=== PATIENT | female | born 2005 | race Caucasian/White ===

== ENCOUNTER 2024-03-28 14:23 | Outpatient (CLI) | payer OTHER, SELFPAY ==
[2024-03-28 15:41] LABS: Alanine Aminotransferase 19 U/L (6-35); Albumin Level 4.5 g/dL (3.7-5.6); Alkaline Phosphatase 72 U/L (45-116); Anion Gap 9 mmol/L (4-12); Aspartate Amino Transferase 26 U/L (14-36); Bilirubin,Total 0.7 mg/dL (0.2-1.3); Blood Urea Nitrogen 15 mg/dL (8-21); Calcium 8.9 mg/dL (8.9-10.7); Carbon Dioxide 30 mmol/L (22-30); Chloride 101 mmol/L (98-107); Estimated Glomerular Filt Rate > 60; Glucose 93 mg/dL (65-110); Potassium 4.7 mmol/L (3.4-5.0); Sodium 140 mmol/L (134-143)
[2024-04-01 13:13] LABS: NIL 0.01 IU/mL; Quantiferon TB Plus, 1T NEGATIVE (NEGATIVE)
== END 2024-03-28 14:24 | disposition home or self-care (01) ==
LOC: ANHLAB 14:25
PROVIDERS: PCP Family Medicine; Visit Provider Physician Assistant Medical
DX: Z00.00 Encounter for general adult medical examination without abnormal findings (principal); E04.1 Nontoxic single thyroid nodule; E78.2 Mixed hyperlipidemia; A15 Respiratory tuberculosis; F41.9 Anxiety disorder, unspecified
CPT/HCPCS: 36415; 80053; 84443; 86480

== ENCOUNTER 2025-03-29 12:38 | Outpatient (CLI) | payer OTHER, SELFPAY ==
--- OUTSIDE RECORDS SUMMARY | 2025-03-29 12:40 | XMS_ITS | Encounter Summary ---
Author Organization [facility] Address [address] [place] [address] Care Team Providers Care Contract Forester Name Role Phone Unavailable Primary Care Provider Unavailabl e Encounter Details Date Type Department Care Team (Late st Contact Info) Description 02/04/2005 Inpatient Historical [facility] LeonoraChris nicole MD [address] [facility] [place] [address] Conversion, History URIN TRACT INFECTION NOS (Primary Dx) Social History Tobacco Use Types Packs/Day Years Used Date Smoking Tobacco: Never Assessed Comments Unknown Sex and Gender Information Value Date Recorded Sex Assigned at Not on file 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
--- OUTSIDE RECORDS SUMMARY | 2025-03-29 12:40 | XMS_ITS | Encounter Summary ---
Author Organization [facility] Address 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
--- OUTSIDE RECORDS SUMMARY | 2025-03-29 12:40 | XMS_ITS | Encounter Summary ---
Author Organization [facility] Address 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
--- OUTSIDE RECORDS SUMMARY | 2025-03-29 12:40 | XMS_ITS | Encounter Summary ---
[facility] Organization [facility] Address [address] [place] [address] Care Team Providers Care Donor Relations Coordinator Name Role Phone Unavailable Primary Care Provider Unavailabl e Encounter Details Date Type Department Care Team (Latest Contact Info) Description 2004 Inpatient Historical HIS PATIENT IN A BED Zhao Camp MD [address] [place] [address] Eduardo Sifuentes MD [address] [place] [place] [address] ADI BORN IN HOSP-W C/DELIVERY (Primary Dx) Social History Tobacco Use Types Packs/Day Years Used Date Smoking Tobacco: Never Assessed Comments Unknown Sex and Gender Information Value Date Recorded Sex Assigned at Not on file Legal Sex Female 3:26 AM RN CARDIAC CATH Gender Identity Not on file Sexual Orientation Not on file documented as of this encounter Plan of Treatment Not on file documented as of this encounter Procedures Procedure Name Priority Date/Time Associated Diagnosis Comments HEMOGLOBIN AND HEMATOCRIT Routine 2004 4:20 AM RN CARDIAC CATH RETICULOCYTES Routine 2004 4:20 AM RN CARDIAC CATH HEMOGLOBIN AND HEMATOCRIT Routine 2004 10:55 AM RN CARDIAC CATH HEMOGLOBIN AND HEMATOCRIT Routine 2004 6:31 AM RN CARDIAC CATH BASIC METABOLIC PANEL Routine 2004 4:29 AM RN CARDIAC CATH TPN PANEL Routine 2004 4: 47 AM RN CARDIAC CATH BASIC METABOLIC PANEL Routine 2004 4:19 AM RN CARDIAC CATH BILIRUBIN TOTAL Routine 2004 4:47 AM RN CARDIAC CATH BASIC METABOLIC PANEL Routine 2004 4:47 AM RN CARDIAC CATH BASIC METABOLIC PANEL Routine 2004 9:08 AM RN CARDIAC CATH HEMOGLOBIN AND HEMATOCRIT Routine 2004 4:26 AM RN CARDIAC CATH TRIGLYCERIDE Routine 2004 4:26 AM RN CARDIAC CATH BASIC METABOLIC PANEL Routine 2004 4:26 AM RN CARDIAC CATH BILIRUBIN TOTAL Routine 2004 4:37 AM RN CARDIAC CATH BILIRUBIN TOTAL Routine 2004 5:25 AM RN CARDIAC CATH TRIGLYCERIDE Routine 2004 5:00 AM RN CARDIAC CATH BILIRUBIN TOTAL Routine 2004 5:00 AM RN CARDIAC CATH BASIC METABOLIC PANEL Routine 2004 5:00 AM RN CARDIAC CATH TRIGLYCERIDE Routine 2004 5:15 AM RN CARDIAC CATH BILIRUBIN TOTAL Routine 2004 5:15 AM RN CARDIAC CATH BASIC METABOLIC PANEL Routine 2004 5:15 AM RN CARDIAC CATH CBC WITH DIFFERENTIAL Routine 2004 4:56 AM RN CARDIAC CATH CBC WITH DIFFERENTIAL Routine 2004 4:56 AM RN CARDIAC CATH CBC WITH DIFFERENTIAL Routine 2004 4:56 AM RN CARDIAC CATH BILIRUBIN TOTAL Routine 2004 4:56 AM RN CARDIAC CATH BASIC METABOLIC PANEL Routine 2004 4:56 AM RN CARDIAC CATH TRIGLYCERIDE Routine 2004 4:45 AM RN CARDIAC CATH BASIC METABOLIC PANEL Routine 2004 4:45 AM RN CARDIAC CATH GENTAMICIN LEVEL RANDOM Routine 2004 7:06 PM RN CARDIAC CATH CBC WITH DIFFERENTIAL Routine 2004 6:09 AM RN CARDIAC CATH CBC WITH DIFFERENTIAL Routine 2004 6:09 AM RN CARDIAC CATH CBC WITH DIFFERENTIAL Routine 2004 6:09 AM RN CARDIAC CATH BILIRUBIN TOTAL Routine 2004 4:49 AM RN CARDIAC CATH BASIC METABOLIC PANEL Routine 2004 4:34 AM RN CARDIAC CATH BILIRUBIN TOTAL Routine 2004 4:45 AM RN CARDIAC CATH BASIC METABOLIC PANEL Routine 2004 4:45 AM RN CARDIAC CATH CBC WITH DIFFERENTIAL Routine 2004 5:39 AM RN CARDIAC CATH CBC WITH DIFFERENTIAL Routine 2004 5:39 AM RN CARDIAC CATH CBC WITH DIFFERENTIAL Routine 2004 5:39 AM RN CARDIAC CATH documented in this encounter Results * (ABNORMAL) RETICULOCYTES (2004 4:20 AM RN CARDIAC CATH) RETICULOCYTES 1.8 0.5 - 2.0 % INTERFACE SYSTEM IMMATURE RETIC FRACTION 21(H) 0 - 16 % INTERFACE SYSTEM 2004 4:20 AM RN CARDIAC CATH Suhail Hernandez MD HEMATOLOGY ORDERABLES F inal Result Performing Organization Address City/[facility] de Phone Number INTERFACE SYSTEM Refer to clinic/hospital department * HEMOGLOBIN AND HEMATOCRIT (2004 4:20 AM RN CARDIAC CATH) HEMOGLOBIN 13.5 10.0 - 18.0 g/dL INTERFACE SYSTEM HEMATOCRIT 39.3 31.0 - 56.0 % INTERFACE SYSTEM 2004 4:20 AM RN CARDIAC CATH Suhail Hernandez MD HEMATOLOGY ORDERABLES F inal Result Performing Organization Address [facility] de Phone Number INTERFACE SYSTEM Refer to clinic/hospital department * HEMOGLOBIN AND HEMATOCRIT (2004 10:55 AM RN CARDIAC CATH) HEMOGLOBIN 12.7 10.0 - 18.0 g/dL INTERFACE SYSTEM HEMATOCRIT 36.1 31.0 - 56.0 % INTERFACE SYSTEM 2004 10:5 5 AM RN CARDIAC CATH Carmelo Moctezuma MD HEMATOLOGY ORDERABLES Final Res ult Performing Organization Address [facility] Phone Number INTERFACE SYSTEM Refer to clinic/hospital department * (ABNORMAL) HEMOGLOBIN AND HEMATOCRIT (2004 6:31 AM RN CARDIAC CATH) HEMOGLOBIN 7.5(AA) 10.0 - 18.0 g/dL INTERFACE SYSTEM Comment: Verified by repeat analysis. Results called to yoel at 2004 6:59 AM and read back verified. HEMATOCRIT 22.2(AA) 31.0 - 56.0 % INTERFACE SYSTEM Comment: Verified by repeat analysis. Results called to yoel at 2004 6:59 AM and read back verified. 2004 6:31 AM RN CARDIAC CATH Sean Portillo MD HEMATOLOGY ORDERABLES Final Result Performing Organization Address [facility] de Phone Number INTERFACE SYSTEM Refer to clinic/hospital department * (ABNORMAL) BASIC METABOLIC PANEL (2004 4:29 AM RN CARDIAC CATH) GLUCOSE 87 60 - 110 mg/dL INTERFACE SYSTEM BUN 9 6 - 20 mg/dL INTERFACE SYSTEM SODIUM 140 135 - 145 mmol/L INTERFACE SYSTEM POTASSIUM 4.1 3.4 - 5.6 mmol/L INTERFACE SYSTEM CHLORIDE 109(H) 96 - 108 mmol/L INTERFACE SYSTEM CO2 27 22 - 30 mmol/L INTERFACE SYSTEM 2004 4:29 AM RN CARDIAC CATH Suhail Hernandez MD CHEMISTRY ORDERABLES Fi nal Result Performing Organization Address [facility] Phone Number INTERFACE SYSTEM Refer to clinic/hospital department * (ABNORMAL) TPN PANEL (2004 4:47 AM RN CARDIAC CATH) BILIRUBIN DIRECT <0.1 0.0 - 0.6 mg/dL INTERFACE SYSTEM CALCIUM 10.0 9.0 - 11.0 mg/dL INTERFACE SYSTEM PHOSPHORUS 7.1(H) 4.5 - 6.7 mg/dL INTERFACE SYSTEM ALKALINE PHOSPHATASE 235 40 - 449 U/L INTERFACE SYSTEM TOTAL PROTEIN 4.5(L) 5.0 - 7.6 g/dL INTERFACE SYSTEM ALT 10 0 - 31 U/L INTERFACE SYSTEM GGT 54 15 - 132 U/L INTERFACE SYSTEM MAGNESIUM 1.9 1.5 - 2.5 mg/dL INTERFACE SYSTEM 2004 4:47 AM RN CARDIAC CATH Magdiel Reilly MD CHEMISTRY ORDERABLES Final Resu lt Performing Organization Address [facility]/ZIP Co de Phone Number INTERFACE SYSTEM Refer to clinic/hospital department * (ABNORMAL) BASIC METABOLIC PANEL (2004 4:19 AM RN CARDIAC CATH) GLUCOSE 89 60 - 110 mg/dL INTERFACE SYSTEM BUN 14 6 - 20 mg/dL INTERFACE SYSTEM SODIUM 134(L) 135 - 145 mmol/L INTERFACE SYSTEM POTASSIUM 4.8 3.5 - 5.7 mmol/L INTERFACE SYSTEM CHLORIDE 103 96 - 108 mmol/L INTERFACE SYSTEM CO2 24 22 - 30 mmol/L INTERFACE SYSTEM 2004 4:19 AM RN CARDIAC CATH Carmelo Moctezuma MD CHEMISTRY ORDERABLES Final Resu Performing Organization Address [facility] Phone Number INTERFACE SYSTEM Refer to clinic/hospital department * (ABNORMAL) BASIC METABOLIC PANEL (2004 4:47 AM RN CARDIAC CATH) GLUCOSE 85 60 - 110 mg/dL INTERFACE SYSTEM BUN 18 6 - 20 mg/dL INTERFACE SYSTEM SODIUM 123(L) 135 - 145 mmol/L INTERFACE SYSTEM POTASSIUM 5.1 3.5 - 5.7 mmol/L INTERFACE SYSTEM Comment:No visible hemolysis . CHLORIDE 92(L) 96 - 108 mmol/L INTERFACE SYSTEM CO2 24 22 - 30 mmol/L INTERFACE SYSTEM 2004 4:47 AM RN CARDIAC CATH Carmelo Moctezuma MD CHEMISTRY ORDERABLES Final Resu Performing Organization Address [facility] Phone Number INTERFACE SYSTEM Refer to clinic/hospital department * (ABNORMAL) BILIRUBIN TOTAL (2004 4:47 AM RN CARDIAC CATH) BILIRUBIN TOTAL 4.7(H) 0.2 - 1.0 mg/dL INTERFACE SYSTEM 2004 4:47 AM RN CARDIAC CATH Result [facility] Carmelo Moctezuma MD CHEMISTRY ORDERABLES Final Resu Performing Organization Address [facility] Phone [facility] INTERFACE SYSTEM Refer to clinic/hospital department * (ABNORMAL) BASIC METABOLIC PANEL (2004 9:08 AM RN CARDIAC CATH) GLUCOSE 91 60 - 110 mg/dL INTERFACE SYSTEM BUN 19 6 - 20 mg/dL INTERFACE SYSTEM SODIUM 121(L) 135 - 145 mmol/L INTERFACE SYSTEM POTASSIUM 5.0 3.5 - 5.7 mmol/L INTERFACE SYSTEM Comment:No visible hemolysis . CHLORIDE 89(L) 96 - 108 mmol/L INTERFACE SYSTEM CO2 26 22 - 30 mmol/L INTERFACE SYSTEM 2004 9:08 AM RN CARDIAC CATH Carmelo Moctezuma MD CHEMISTRY ORDERABLES Final Resu Performing Organization Address [facility] Phone Number INTERFACE SYSTEM Refer to clinic/hospital department * HEMOGLOBIN AND HEMATOCRIT (2004 4:26 AM RN CARDIAC CATH) HEMOGLOBIN 11.0 10.0 - 18.0 g/dL INTERFACE SYSTEM HEMATOCRIT 31.8 31.0 - 56.0 % INTERFACE SYSTEM 2004 4:26 AM RN CARDIAC CATH Zhao Camp MD HEMATOLOGY ORDERABLES Final Re sult Performing Organization Address [facility] Phone Number INTERFACE SYSTEM Refer to clinic/hospital department * TRIGLYCERIDE (2004 4:26 AM RN CARDIAC CATH) TRIGLYCERIDE 39 33 - 115 mg/dL INTERFACE SYSTEM Comment: Triglyceride ATP III Classification: Normal <150 mg/dL Borderline High 150 - 199 mg/dL High 200 - 499 mg/dL Very High >= 500 mg/dL 2004 4:26 AM RN CARDIAC CATH Suhail Hernandez MD CHEMISTRY ORDERABLES Fi nal Result Performing Organization Address [facility] Phone Number INTERFACE SYSTEM Refer to clinic/hospital department * (ABNORMAL) BASIC METABOLIC PANEL (2004 4:26 AM RN CARDIAC CATH) GLUCOSE 94 60 - 110 mg/dL INTERFACE SYSTEM BUN 22(H) 6 - 20 mg/dL INTERFACE SYSTEM POTASSIUM 5.7 3.5 - 5.7 mmol/L INTERFACE SYSTEM Comment:No visible hemolysis . CHLORIDE 86(L) 96 - 108 mmol/L INTERFACE SYSTEM CO2 20(L) 22 - 30 mmol/L INTERFACE SYSTEM SODIUM 122(L) 135 - 145 mmol/L INTERFACE SYSTEM Comment:Results confirmed by 2nd methodology. 2004 4:26 AM RN CARDIAC CATH Suhail Hernandez MD CHEMISTRY ORDERABLES Fi nal Result Performing Organization Address [facility] Phone Number INTERFACE SYSTEM Refer to clinic/hospital department * (ABNORMAL) BILIRUBIN TOTAL (2004 4:37 AM RN CARDIAC CATH) BILIRUBIN TOTAL 5.1(H) 0.2 - 1.0 mg/dL INTERFACE SYSTEM 2004 4:37 AM RN CARDIAC CATH Magdiel Reilly MD CHEMISTRY ORDERABLES Final Resu lt Performing Organization Address [facility] Phone Number INTERFACE SYSTEM Refer to clinic/hospital department * (ABNORMAL) BILIRUBIN TOTAL (2004 5:25 AM RN CARDIAC CATH) BILIRUBIN TOTAL 3.5(H) 0.2 - 1.0 mg/dL INTERFACE SYSTEM 2004 5:25 AM RN CARDIAC CATH Natasha Allison CHEMISTRY ORDERABLES Final Resul t Performing Organization Address [facility] Phone Number INTERFACE SYSTEM Refer to clinic/hospital department * TRIGLYCERIDE (2004 5:00 AM RN CARDIAC CATH) TRIGLYCERIDE 61 33 - 115 mg/dL INTERFACE SYSTEM Comment: Triglyceride ATP III Classification: Normal <150 mg/dL Borderline High 150 - 199 mg/dL High 200 - 499 mg/dL Very High >= 500 mg/dL 2004 5:00 AM RN CARDIAC CATH Result [facility] Magdiel Reilly MD CHEMISTRY ORDERABLES Final Resu lt Performing Organization Address [facility] Phone Number INTERFACE SYSTEM Refer to clinic/hospital department * (ABNORMAL) BILIRUBIN TOTAL (2004 5:00 AM RN CARDIAC CATH) BILIRUBIN TOTAL 5.1(H) 0.2 - 1.0 mg/dL INTERFACE SYSTEM 2004 5:00 AM RN CARDIAC CATH Magdiel Reilly MD CHEMISTRY ORDERABLES Final Resu lt Performing Organization Address [facility] Phone Number INTERFACE SYSTEM Refer to clinic/hospital department * (ABNORMAL) BASIC METABOLIC PANEL (2004 5:00 AM RN CARDIAC CATH) GLUCOSE 87 60 - 110 mg/dL INTERFACE SYSTEM BUN 24(H) 6 - 20 mg/dL INTERFACE SYSTEM SODIUM 140 135 - 145 mmol/L INTERFACE SYSTEM POTASSIUM 6.7(H) 3.5 - 5.7 mmol/L INTERFACE SYSTEM Comment:Slightly hemolyzed. CHLORIDE 115(H) 96 - 108 mmol/L INTERFACE SYSTEM CO2 15(L) 22 - 30 mmol/L INTERFACE SYSTEM 2004 5:00 AM RN CARDIAC CATH Magdiel Reilly MD CHEMISTRY ORDERABLES Final Resu lt Performing Organization Address [facility] Phone Number INTERFACE SYSTEM Refer to clinic/hospital department * (ABNORMAL) BASIC METABOLIC PANEL (2004 5:15 AM RN CARDIAC CATH) GLUCOSE 86 60 - 110 mg/dL INTERFACE SYSTEM BUN 25(H) 6 - 20 mg/dL INTERFACE SYSTEM SODIUM 140 135 - 145 mmol/L INTERFACE SYSTEM POTASSIUM 6.0(H) 3.5 - 5.7 mmol/L INTERFACE SYSTEM Comment:Slightly hemolyzed. CHLORIDE 115(H) 96 - 108 mmol/L INTERFACE SYSTEM CO2 15(L) 22 - 30 mmol/L INTERFACE SYSTEM 2004 5:15 AM RN CARDIAC CATH Eduardo Sifuentes MD CHEMISTRY ORDERABLES Final Re sult Performing Organization Address [facility] Phone Number INTERFACE SYSTEM Refer to clinic/hospital department * TRIGLYCERIDE (2004 5:15 AM RN CARDIAC CATH) TRIGLYCERIDE 61 33 - 115 mg/dL INTERFACE SYSTEM Comment: Triglyceride ATP III Classification: Normal <150 mg/dL Borderline High 150 - 199 mg/dL High 200 - 499 mg/dL Very High >= 500 mg/dL 2004 5:15 AM RN CARDIAC CATH Eduardo Sifuenets MD CHEMISTRY ORDERABLES Final Re sult Performing Organization Address [facility] de Phone Number INTERFACE SYSTEM Refer to clinic/hospital department * (ABNORMAL) BILIRUBIN TOTAL (2004 5:15 AM RN CARDIAC CATH) BILIRUBIN TOTAL 6.4(H) 0.2 - 1.0 mg/dL INTERFACE SYSTEM 2004 5:15 AM RN CARDIAC CATH Eduardo Sifuentes MD CHEMISTRY ORDERABLES Final Re sult Performing Organization Address City/[facility] de Phone Number INTERFACE SYSTEM Refer to clinic/hospital department * (ABNORMAL) CBC WITH DIFFERENTIAL (2004 4:56 AM RN CARDIAC CATH) NEUTROPHIL ABSOLUTE 5.42 K/uL INTERFACE SYSTEM LYMPHOCYTE ABSOLUTE 3.65 K/uL INTERFACE SYSTEM MONOCYTE ABSOLUTE 2.02 K/uL IN TERFACE SYSTEM EOSINOPHIL ABSOLUTE 1.39 K/uL INTERFACE SYSTEM BASOPHILS ABSOLUTE 0.00 K/uL INTERFACE SYSTEM NEUTROPHILS, SEG 42 16 - 60 % INT ERFACE SYSTEM BANDS 1 0 - 4 % INTERFACE SYSTEM LYMPHOCYTES 29 20 - 70 % INTERFAC E SYSTEM MONOCYTES 16(H) 0 - 7 % INTERFACE SYSTEM EOSINOPHILS 11(H) 0 - 8 % INTERFAC E SYSTEM BASOPHILS 0 0 - 1 % INTERFACE SYSTEM METAMYELOCYTE 1(H) <=0 % INTERF JAZMINE SYSTEM PLATELET EST. Normal Normal INTERF JAZMINE SYSTEM ANISOCYTOSIS Slight INTERFA CE SYSTEM POIKILOCYTES Slight INTERFA CE SYSTEM MACROCYTES Slight INTERFACE SYSTEM POLYCHROMASIA Slight INTERF JAZMINE SYSTEM RADHA CELLS Slight INTERFACE SYSTEM CLUMPED PLATELETS Present IN TERFACE SYSTEM GIANT PLATELETS Present INTE RFACE SYSTEM REVIEWED ON SMEAR WBC & Plt Reviewed INTERFACE SYSTEM 2004 4:56 AM RN CARDIAC CATH Eduardo Sifuentes MD HEMATOLOGY ORDERABLES Final R esult Performing Organization Address [facility] de Phone Number INTERFACE SYSTEM Refer to clinic/hospital department * (ABNORMAL) CBC WITH DIFFERENTIAL (2004 4:56 AM RN CARDIAC CATH) NRBC 1(H) <=0 /100 WBC INTERFACE SYSTEM 2004 4:56 AM RN CARDIAC CATH Eduardo Sifuentes MD HEMATOLOGY ORDERABLES Final R esult Performing Organization Address City/[facility]/ZIP Co de Phone Number INTERFACE SYSTEM Refer to clinic/hospital department * (ABNORMAL) CBC WITH DIFFERENTIAL (2004 4:56 AM RN CARDIAC CATH) WBC 12.6 5.0 - 30.0 K/uL INTERFACE SYSTEM RBC 3.86(L) 3.90 - 6.00 M/uL INTERFACE SYSTEM HEMOGLOBIN 13.4(L) 14.5 - 22.5 g/dL INTERFACE SYSTEM HEMATOCRIT 39.3(L) 45.0 - 66.0 % INTERFACE SYSTEM MCV 101.8 88.0 - 123.0 fL INTERFACE SYSTEM MCH 34.7 34.0 - 40.0 pg INTERFACE SYSTEM MCHC 34.1 29.0 - 35.0 % INTERFACE SYSTEM RDW 15.5(H) 11.5 - 14.5 % INTERFACE SYSTEM RDW-STDEV 57.7(H) 37.1 - 48.7 fL INTERFACE SYSTEM PLATELETS 173 140 - 350 K/uL INTERFACE SYSTEM Comment:WBC and Platelets ve rified by smear review. MPV 12.1 9.3 - 12.4 fL INTERFACE SYSTEM 2004 4:56 AM RN CARDIAC CATH Eduardo Sifuentes MD HEMATOLOGY ORDERABLES Final R esult Performing Organization Address [facility] Number INTERFACE SYSTEM Refer to clinic/hospital department * (ABNORMAL) BASIC METABOLIC PANEL (2004 4:56 AM RN CARDIAC CATH) GLUCOSE 91 60 - 110 mg/dL INTERFACE SYSTEM BUN 25(H) 6 - 20 mg/dL INTERFACE SYSTEM SODIUM 142 135 - 145 mmol/L INTERFACE SYSTEM POTASSIUM 4.7 3.5 - 5.7 mmol/L INTERFACE SYSTEM CHLORIDE 112(H) 96 - 108 mmol/L INTERFACE SYSTEM CO2 20(L) 22 - 30 mmol/L INTERFACE SYSTEM 2004 4:56 AM RN CARDIAC CATH Eduardo Sifuentes MD CHEMISTRY ORDERABLES Final Re sult Performing Organization Address [facility] Phone Number INTERFACE SYSTEM Refer to clinic/hospital department * BILIRUBIN TOTAL (2004 4:56 AM RN CARDIAC CATH) BILIRUBIN TOTAL 8.5 1.5 - 12.0 mg/dL INTERFACE SYSTEM 2004 4:56 AM RN CARDIAC CATH us Eduardo Sifuentes MD CHEMISTRY ORDERABLES Final Re sult Performing Organization Address [facility] Phone Number INTERFACE SYSTEM Refer to clinic/hospital department * TRIGLYCERIDE (2004 4:45 AM RN CARDIAC CATH) Pathologist [facility] TRIGLYCERIDE 67 33 - 115 mg/dL INTERFACE SYSTEM Comment: Triglyceride ATP III Classification: Normal <150 mg/dL Borderline High 150 - 199 mg/dL High 200 - 499 mg/dL Very High >= 500 mg/dL 2004 4:45 AM RN CARDIAC CATH Eduardo Sifuentes MD CHEMISTRY ORDERABLES Final Re sult Performing Organization Address [facility] INTERFACE SYSTEM Refer to clinic/hospital department * (ABNORMAL) BASIC METABOLIC PANEL (2004 4:45 AM RN CARDIAC CATH) Pathologist [facility] GLUCOSE 80 40 - 80 mg/dL INTERFACE SYSTEM BUN 24(H) 6 - 20 mg/dL INTERFACE SYSTEM SODIUM 147(H) 135 - 145 mmol/L INTERFACE SYSTEM POTASSIUM 5.0 3.5 - 5.7 mmol/L INTERFACE SYSTEM CHLORIDE 116(H) 96 - 108 mmol/L INTERFACE SYSTEM CO2 20(L) 22 - 30 mmol/L INTERFACE SYSTEM 2004 4:45 AM RN CARDIAC CATH us Eduardo Sifuentes MD CHEMISTRY ORDERABLES Final Re sult Performing Organization Address [facility] Phone Number INTERFACE SYSTEM Refer to clinic/hospital department * GENTAMICIN LEVEL RANDOM (2004 7:06 PM RN CARDIAC CATH) Pathologist [facility] GENTAMICIN, RANDOM 5.0 ug/mL INTERFACE SYSTEM Comment: Gentamicin Trough Therapeutic Range = 0.0 - 2.0 ug/mL Gentamicin Trough Toxic Level = > 2.0 ug/mL Gentamicin Peak Therapeutic Level = 6.0 - 10.0 ug/mL Gentamicin Peak Toxic Level = > 12.0 ug/mL 2004 7:06 PM RN CARDIAC CATH Zhao Camp MD CHEMISTRY ORDERABLES Final Res ult Performing Organization Address [facility] Phone Number INTERFACE SYSTEM Refer to clinic/hospital department * (ABNORMAL) CBC WITH DIFFERENTIAL (2004 6:09 AM RN CARDIAC CATH) NEUTROPHIL ABSOLUTE 9.60 K/uL INTERFACE SYSTEM LYMPHOCYTE ABSOLUTE 3.30 K/uL INTERFACE SYSTEM MONOCYTE ABSOLUTE 1.80 K/uL IN TERFACE SYSTEM EOSINOPHIL ABSOLUTE 0.30 K/uL INTERFACE SYSTEM BASOPHILS ABSOLUTE 0.00 K/uL INTERFACE SYSTEM NEUTROPHILS, SEG 61(H) 16 - 60 % INT ERFACE SYSTEM BANDS 3 0 - 4 % INTERFACE SYSTEM LYMPHOCYTES 22 20 - 70 % INTERFAC E SYSTEM MONOCYTES 12(H) 0 - 7 % INTERFACE SYSTEM EOSINOPHILS 2 0 - 8 % INTERFAC E SYSTEM BASOPHILS 0 0 - 1 % INTERFACE SYSTEM PLATELET EST. Slt. Decreased(A) Normal INTERFACE SYSTEM ANISOCYTOSIS Slight INTERFA CE SYSTEM POIKILOCYTES Slight INTERFA CE SYSTEM MACROCYTES Slight INTERFACE SYSTEM POLYCHROMASIA Slight INTERF JAZMINE SYSTEM PAPPENHEIMER BODIES Present INTERFACE SYSTEM GIANT PLATELETS Present INTE RFACE SYSTEM REVIEWED ON SMEAR WBC & Plt Reviewed INTERFACE SYSTEM 2004 6:09 AM RN CARDIAC CATH Eduardo Sifuentes MD HEMATOLOGY ORDERABLES Final R esult Performing Organization Address [facility] Phone Number INTERFACE SYSTEM Refer to clinic/hospital department * (ABNORMAL) CBC WITH DIFFERENTIAL (2004 6:09 AM RN CARDIAC CATH) NRBC 3(H) <=0 /100 WBC INTERFACE SYSTEM 2004 6:09 AM RN CARDIAC CATH Eduardo Sifuentes MD HEMATOLOGY ORDERABLES Final R esult Performing Organization Address [facility] Phone Number INTERFACE SYSTEM Refer to clinic/hospital department * (ABNORMAL) CBC WITH DIFFERENTIAL (2004 6:09 AM RN CARDIAC CATH) WBC 15.0 5.0 - 30.0 K/uL INTERFACE SYSTEM RBC 3.83(L) 3.90 - 6.00 M/uL INTERFACE SYSTEM HEMOGLOBIN 13.5(L) 14.5 - 22.5 g/dL INTERFACE SYSTEM HEMATOCRIT 40.8(L) 45.0 - 66.0 % INTERFACE SYSTEM MCV 106.5 88.0 - 123.0 fL INTERFACE SYSTEM MCH 35.2 34.0 - 40.0 pg INTERFACE SYSTEM MCHC 33.1 29.0 - 35.0 % INTERFACE SYSTEM RDW 16.7(H) 11.5 - 14.5 % INTERFACE SYSTEM RDW-STDEV 64.4(H) 37.1 - 48.7 fL INTERFACE SYSTEM PLATELETS 130(L) 140 - 350 K/uL INTERFACE SYSTEM MPV 11.8 9.3 - 12.4 fL INTERFACE SYSTEM 2004 6:09 AM RN CARDIAC CATH Eduardo Sifuentes MD HEMATOLOGY ORDERABLES Final R esult Performing Organization Address [facility] de Phone Number INTERFACE SYSTEM Refer to clinic/hospital department * BILIRUBIN TOTAL (2004 4:49 AM RN CARDIAC CATH) Pathologist [facility] BILIRUBIN TOTAL 7.9 3.4 - 11.5 mg/dL INTERFACE SYSTEM 2004 4:49 AM RN CARDIAC CATH Eduardo Sifuentes MD CHEMISTRY ORDERABLES Final Re sult Performing Organization Address [facility] de Phone Number INTERFACE SYSTEM Refer to clinic/hospital department * (ABNORMAL) BASIC METABOLIC PANEL (2004 4:34 AM RN CARDIAC CATH) GLUCOSE 96(H) 40 - 80 mg/dL INTERFACE SYSTEM BUN 21(H) 6 - 20 mg/dL INTERFACE SYSTEM SODIUM 142 135 - 145 mmol/L INTERFACE SYSTEM POTASSIUM 5.6 3.5 - 5.7 mmol/L INTERFACE SYSTEM CHLORIDE 113(H) 96 - 108 mmol/L INTERFACE SYSTEM CO2 22 22 - 30 mmol/L INTERFACE SYSTEM 2004 4:34 AM RN CARDIAC CATH Eduardo Sifuentes MD CHEMISTRY ORDERABLES Final Re sult Performing Organization Address [facility] Phone Number INTERFACE SYSTEM Refer to clinic/hospital department * (ABNORMAL) BASIC METABOLIC PANEL (2004 4:45 AM RN CARDIAC CATH) GLUCOSE 54 40 - 80 mg/dL INTERFACE SYSTEM BUN 18 6 - 20 mg/dL INTERFACE SYSTEM SODIUM 141 135 - 145 mmol/L INTERFACE SYSTEM POTASSIUM 3.9 3.5 - 5.7 mmol/L INTERFACE SYSTEM CHLORIDE 110(H) 96 - 108 mmol/L INTERFACE SYSTEM CO2 25 22 - 30 mmol/L INTERFACE SYSTEM 2004 4:45 AM RN CARDIAC CATH Eduardo Sifuentes MD CHEMISTRY ORDERABLES Final Re sult Performing Organization Address [facility] Phone Number INTERFACE SYSTEM Refer to clinic/hospital department * BILIRUBIN TOTAL (2004 4:45 AM RN CARDIAC CATH) BILIRUBIN TOTAL 6.7 3.4 - 11.5 mg/dL INTERFACE SYSTEM 2004 4:45 AM RN CARDIAC CATH Eduardo Sifuentes MD CHEMISTRY ORDERABLES Final Re sult Performing Organization Address [facility] Phone Number INTERFACE SYSTEM Refer to clinic/hospital department * CBC WITH DIFFERENTIAL (2004 5:39 AM RN CARDIAC CATH) NEUTROPHIL ABSOLUTE 8.27 K/uL INTERFACE SYSTEM LYMPHOCYTE ABSOLUTE 6.55 K/uL INTERFACE SYSTEM MONOCYTE ABSOLUTE 0.31 K/uL IN TERFACE SYSTEM EOSINOPHIL ABSOLUTE 0.47 K/uL INTERFACE SYSTEM BASOPHILS ABSOLUTE 0.00 K/uL INTERFACE SYSTEM NEUTROPHILS, SEG 51 16 - 60 % INT ERFACE SYSTEM BANDS 2 0 - 4 % INTERFACE SYSTEM LYMPHOCYTES 42 20 - 70 % INTERFAC E SYSTEM MONOCYTES 2 0 - 7 % INTERFACE SYSTEM EOSINOPHILS 3 0 - 8 % INTERFAC E SYSTEM BASOPHILS 0 0 - 1 % INTERFACE SYSTEM PLATELET EST. Normal Normal INTERF JAZMINE SYSTEM ANISOCYTOSIS Slight INTERFA CE SYSTEM POIKILOCYTES Slight INTERFA CE SYSTEM MICROCYTES Slight INTERFACE SYSTEM MACROCYTES Moderate INTERFACE SYSTEM POLYCHROMASIA Slight INTERF JAZMINE SYSTEM GIANT PLATELETS Present INTE RFACE SYSTEM REVIEWED ON SMEAR WBC & Plt Reviewed INTERFACE SYSTEM 2004 5:39 AM RN CARDIAC CATH us Eduardo Sifuentes MD HEMATOLOGY ORDERABLES Final R esult Performing Organization Address [facility] de Phone Number INTERFACE SYSTEM Refer to clinic/hospital department * (ABNORMAL) CBC WITH DIFFERENTIAL (2004 5:39 AM RN CARDIAC CATH) NRBC 23(H) <=0 /100 WBC INTERFACE SYSTEM 2004 5:39 AM RN CARDIAC CATH Eduardo Sifuentes MD HEMATOLOGY ORDERABLES Final R esult Performing Organization Address [facility] Phone Number INTERFACE SYSTEM Refer to clinic/hospital department * (ABNORMAL) CBC WITH DIFFERENTIAL (2004 5:39 AM RN CARDIAC CATH) WBC 15.6 5.0 - 30.0 K/uL INTERFACE SYSTEM RBC 4.16 3.90 - 6.00 M/uL INTERFACE SYSTEM HEMOGLOBIN 15.1 14.5 - 22.5 g/dL INTERFACE SYSTEM HEMATOCRIT 45.3 45.0 - 66.0 % INTERFACE SYSTEM MCV 108.9 88.0 - 123.0 fL INTERFACE SYSTEM MCH 36.3 34.0 - 40.0 pg INTERFACE SYSTEM MCHC 33.3 29.0 - 35.0 % INTERFACE SYSTEM RDW 16.1(H) 11.5 - 14.5 % INTERFACE SYSTEM RDW-STDEV 63.5(H) 37.1 - 48.7 fL INTERFACE SYSTEM PLATELETS 174 140 - 350 K/uL INTERFACE SYSTEM Comment:WBC and Platelets ve rified by smear review. MPV 10.7 9.3 - 12.4 fL INTERFACE SYSTEM 2004 5:39 AM RN CARDIAC CATH us Eduardo Sifuentes MD HEMATOLOGY ORDERABLES Final R esult Performing Organization Address [facility] Co de Phone Number INTERFACE SYSTEM Refer to clinic/hospital department documented in this encounter Visit Diagnoses Diagnosis Single liveborn, born in hospital, delivered by delivery- Primary documented in this encounter
--- OUTSIDE RECORDS SUMMARY | 2025-03-29 12:40 | XMS_ITS | Encounter Summary ---
Author Organization [facility] Address 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
--- OUTSIDE RECORDS SUMMARY | 2025-03-29 12:40 | XMS_ITS | Encounter Summary ---
Author Organization [facility] Address [address] [place] [address] Care Team Providers Care Metal Handler Name Role Phone Unavailable Primary Care Provider Unavailabl e Encounter Details Date Type Department Care Team (Late st Contact Info) Description 2004 Outpatient Historical [facility] Childrens Surgery 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
--- OUTSIDE RECORDS SUMMARY | 2025-03-29 12:40 | XMS_ITS | Encounter Summary ---
Author Organization [facility] Address [address] [place] [address] Care Team Providers Care Line Lead Name Role Phone Unavailable Primary Care Provider Unavailabl e Encounter Details Date Type Department Care Team (Late st Contact Info) Description 2004 Outpatient Historical [facility] Support [facility] (Peds Cardiology-[facility]) [address] 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
--- OUTSIDE RECORDS SUMMARY | 2025-03-29 12:40 | XMS_ITS | Clinical Summary ---
Author Organization [facility] Address [address] 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
--- OUTSIDE RECORDS SUMMARY | 2025-03-29 12:40 | XMS_ITS | Encounter Summary ---
Author Organization [facility] Address [address] [place] [address] Care Team Providers Care Residential Real Estate Assistant Name Role Phone Unavailable Primary Care Provider Unavailabl e Encounter Details Date Type Department Care Team (Late st Contact Info) Description 02/04/2005 Outpatient Historical [facility] Childrens Surgery [address] [facility] [address] [place] [address] Chris Ledezma Social History Tobacco Use Types Packs/Day Years Used Date Smoking Tobacco: Never Assessed Comments Unknown Sex and Gender Information Value Date Recorded Sex Assigned at Not on file Legal Sex Female 3:26 AM SWEDISH MASSEUSE Gender Identity Not on file Sexual Orientation Not on file documented as of this encounter Plan of Treatment Not on file documented as of this encounter Visit Diagnoses Not on filedocumented in this encounter
[2025-03-29 13:09] LABS: Alanine Aminotransferase 27 U/L (6-35); Albumin Level 4.3 g/dL (3.5-5.1); Alkaline Phosphatase 75 U/L (38-126); Anion Gap 5 mmol/L (4-12); Aspartate Amino Transferase 47 U/L (14-36); Bilirubin,Total 1.3 mg/dL (0.2-1.3); Blood Urea Nitrogen 16 mg/dL (7-17); Calcium 9.3 mg/dL (8.4-10.2); Carbon Dioxide 28 mmol/L (22-30); Chloride 103 mmol/L (98-107); Estimated Glomerular Filt Rate > 60; Glucose 95 mg/dL (65-110); Potassium 4.2 mmol/L (3.4-5.0); Sodium 136 mmol/L (137-145); Total Protein 7.3 g/dL (6.3-8.2)
== END 2025-03-29 12:39 | disposition home or self-care (01) ==
LOC: ANHLAB 12:39
PROVIDERS: PCP Family Medicine; Visit Provider Student in an Organized Health Care Education/Training Program
DX: Z00.00 Encounter for general adult medical examination without abnormal findings (principal); Z11.1 Encounter for screening for respiratory tuberculosis
CPT/HCPCS: 36415; 80053; 86480